=== PATIENT | female | born 1955 | race Caucasian/White ===

== ENCOUNTER 2023-09-29 09:40 | Outpatient (CLI) | payer BC, SELFPAY ==
--- OUTSIDE RECORDS SUMMARY | 2023-09-29 09:42 | XMS_ITS | Clinical Summary ---
Author Name Unknown Organization [facility] [employer] [facility] Address [place], [place] [address] Care Team Providers Care Machine Spreader Name Role Phone Baudilio Cifuentes MD Primary Care Provider [phone] Allergies No known active allergies Medications Medication Sig Dispensed Refills Start Date End Date Status polyethylene glycol-electrolyte (GOLYTELY) 236-22.74-6.74 -5.86 gram suspensionIndication s:Encounter for screening colonoscopy Drink 2 liters (half the bottle) the day before colonoscopy and 2 liters (remaining prep) 6 hours prior to colonoscopy appointment. 4000 mL 07/15/2023 Active Active Problems Problem Noted Date Diagnosed Date Colon polyp 10/17/2010 Overview: Colonoscopy 09/2010 polyp repeat in 5 years Colonoscopy 06/2014 polyp repeat in 5 years Colonoscopy 11/2019 three polyps, repeat in 5 years Encounters Date Type Department Care Team Description 09/23/2023 Orders Only [facility] [address] [place] [address] Tyrone Jimenez MD <No scans attached> 07/14/2023 Telephone [facility] [address] [place] [address] Tyrone Jimenez MD Questions from Last 3 Months Social History Tobacco Use Types Packs/Day Years Used Date Smoking Tobacco: Former Smokeless Tobacco: Never Comments:quit over 30 years ago Alcohol Use Standard Drinks/Week Comments Not Asked 0 (1 standard drink = 0.6 oz pur e alcohol) Sex and Gender Information Value Date Recorded Sex Assigned at Not on file Gender Identity Not on file Sexual Orientation Not on file Obstetrics History Last Filed Vital Signs Vital Sign Reading Time Taken Comments Blood Pressure 108/62 11/02/2019 8:52 AM CDT Pulse 71 11/02/2019 8:52 AM CDT Temperature 36.7 ??C (98 ??F) 11/02/2019 8:52 AM CDT Respiratory Rate - - Oxygen Saturation 100% 11/02/2019 8:52 AM CDT Inhaled Oxygen Concentration - - Weight - - Height - - Body Mass Index - - Plan of Treatment Upcoming Encounters Date Type Department Care Team (Late st Contact Info) Description 09/29/2023 9:45 AM CDT Office Visit [facility] at [facility] [address] [place] [phone] Tyrone Jimenez MD [address] [place] [address] Arrived Health Maintenance Due Date Last Done Comments Tdap 1964 Depression screening for age 12+ 1965 BMI (ht and wt on same day) for age 18+ 1971 Hepatitis C screening for ag e 18-79 1971 Tetanus booster 1973 Lipids for age 45-75 1998 Mammogram for age 45-75 1998 Zoster (shingles) series for age 50+ (1 of 2) 2003 DEXA/DXA scan for age 65+ 2018 Pneumococcal series for age 65+ (1 of 1 - PCV) 2018 COVID-19 vaccine series (3 - season) 2023 08/17/2020, 07/27/2020 Influenza for age 65+ 02/01/2024 Colonoscopy through age 75 09/28/202809/28, 11/02/2019, 11/02/2019, Additional history exists Procedures Procedure Name Priority Date/Time Associated Diagnosis Comments COLONOSCOPY SCREENING Routine 09/29/2023 8:07 AM CDT Polyp of colon, unspecified part of colon, unspecified type from Last 3 Months Results * COLONOSCOPY (11/02/2019 8:17 AM CDT) 11/02/2019 8:17 AM CDT Narrative Transcriptions Tyrone Jimenez MD - 11/02/2019 9:15 AM CDT Patient Name: Irlanda Cole Procedure Date: 11/02/2019 Gender: Female Date of : 1955 Admit Type: Outpatient Procedure: Colonoscopy Proceduralist: Tyrone Jimenez MD , Jane Lewis, RN (Nurse), Marichuy Reeder (Nurse) Indications/Pre-Op Diagnosis: Surveillance: Personal history ofadenomatous polyps on last colonoscopy 5 years ago, Last colonoscopy: June 2014 Medications: Midazolam 4 mg IV, Fentanyl 150 microgramsIV, The level of sedation administered wasmoderate Procedure Description: The patient had risks, benefits and alternatives explained to andgave informed consent. The patient had a stable cardiopulmonary status and judged an adequate candidate for conscious sedation. The [id number]-[id number] was passed through the anus and advanced tothe cecum, identified by appendiceal orifice and ileocecal valve. The ileocecal valve, appendiceal orifice, and rectum were photographed.The colonoscopy was performed without difficulty. The patient toleratedthe procedure well. The quality of the bowel preparation was excellent. Complications: No immediate complications. Estimated Blood Loss & Specimen: Estimated blood loss: none. Specimen collected - Yes and sent to Laboratory Findings: The perianal and digital rectal examinations were normal. A 4 mm polyp was found in the sigmoid colon. The polyp waspedunculated. The polyp was removed with a cold snare. Resection and retrieval were complete. A 2 mm polyp was found in the sigmoid colon. The polyp was sessile.The polyp was removed with a cold biopsy forceps. Resection and retrieval were complete. A 3 mm polyp was found in the ascending colon. The polyp was sessile. The polyp was removed with a cold biopsy forceps. Resection and retrieval were complete. A single small-mouthed diverticulum was found in the sigmoid colon. Sharp angulation of the distal sigmoid. The exam was otherwise without abnormality on direct and retroflexion views. Impressions/Post-Op Diagnosis: - One 4 mm polyp in the sigmoid colon, removed with a cold snare. Resected and retrieved. - One 2 mm polyp in the sigmoid colon, removed with a cold biopsy forceps. Resected and retrieved. - One 3 mm polyp in the ascending colon, removed with a cold biopsy forceps. Resected and retrieved. - Diverticulosis in the sigmoid colon. - The examination was otherwise normal on direct and retroflexionviews. Recommendation: - Patient has a contact number available for emergencies. The signsand symptoms of potential delayed complications were discussed with the patient. Return to normal activities tomorrow. Written discharge instructions were provided to the patient. - Resume previous diet. - Continue present medications. - Await pathology results. - Repeat colonoscopy for surveillance based on pathology results. Moderate Sedation: Moderate (conscious) sedation was administered by the endoscopy nurse and supervised by the endoscopist. The following parameters were monitored: oxygen saturation, heart rate, respiratory rate, blood pressure, adequacy of pulmonary ventilation and reponse to care. [facility] and nursing [facility] for moderate sedation details. Total physician intraservice time was 34 minutes. Tyrone Jimenez MD 11/02/2019 9:15:29 AM This report has been signed electronically. Note Initiated On: 11/02/2019 8:17 AM Procedure Code(s): --- Professional --- 42232, Colonoscopy, flexible; with removalof tumor(s), polyp(s), or other lesion(s) bysnare technique 88105, 59, Colonoscopy, flexible; withbiopsy, single or multiple Diagnosis Code(s): --- Professional --- Z86.010, Personal history of colonicpolyps D12.5, Benign neoplasm of sigmoid colon D12.2, Benign neoplasm of ascending colon K57.30, Diverticulosis of large intestine without perforation or abscess withoutbleeding CPT copyright 2018 [employer]. All rights reserved. The codes documented in this report are preliminary and upon medical records coder reviewmay be revised to meet current compliance requirements. Scope In: 8:34:45 AM Scope Withdrawal Time 0 hours 16 minutes 21 seconds Scope Out: 9:06:39 AM Tyrone Jimenez MD PROCEDURE ORD from Last 3 Months or Most Recently Relevant to Health Maintenance Care Teams Machine Spreader Relationship Specialty Start Date End Date Baudilio Cifuentes MD [address] [place] [phone] PCP - General Family Practice 09/25/10
--- NOTE | 2023-09-29 11:48 | W.ANESCHARGE ---
Anesthesia Charges Start Date/Time Anesthesia Start Date: 09/29/23 Anesthesia Start Time: 11:24 Stop Date/Time Anesthesia Stop Date: 09/29/23 Anesthesia Stop Time: 11:46
--- NOTE | 2023-09-29 12:10 | W.ANESCHARGE ---
Anesthesia Charges Start Date/Time Anesthesia Start Date: 09/29/23 Anesthesia Start Time: 11:24 Stop Date/Time Anesthesia Stop Date: 09/29/23 Anesthesia Stop Time: 11:46 Summary Extremes of Age - Over 70 or under 1: MDA
== END 2023-09-29 09:41 | disposition home or self-care (01) ==
LOC: OP CLINIC 09:41
PROVIDERS: PCP Nurse Practitioner Family; Visit Provider Internal Medicine Gastroenterology
DX: Z86.010 Personal history of colon polyps (principal)
CPT/HCPCS: 00811; 00812; 45378; 99100; J2704

== ENCOUNTER 2024-05-12 13:44 | Outpatient (CLI) | payer BC, MEDICARE, SELFPAY ==
--- NOTE | 2024-05-12 14:00 | CRLHL7_ITS ---
For Patients: As a result of the Century Cures Act, medical imaging exams and procedure reports are released immediately into your electronic medical record. You may view this report before your referring provider. If you have questions, please contact your health care provider. DXA BONE MINERAL DENSITY STUDY Reason for exam: Osteoporosis. Current height (in): 66. Weight (lb): 123. Menopause age: 56. Ethnicity: White. 1. Have you had a previous hip or vertebral fracture? No. 2. Have you had any fractures during your adult life which did not result from significant trauma (e.g., auto accident)? No. 3. Did either of your parents have a hip fracture? Yes. 4. Do you smoke? No. 5. Have you ever taken Glucocorticoids? No. 6. Do you have rheumatoid arthritis? No. 7. Do you have secondary osteoporosis? No. 8. Do you drink 3 or more alcoholic drinks per day? No. 9. Are you being treated for osteoporosis? No. 10. Have you ever taken any of the following medications: Actonel, Evista, Fosamax, Miacalcin, Reclast, Boniva, Forteo, HRT (i.e., estrogen/hormone therapy), Protelos, Prolia, Vitamin D, Calcium, other ??? please specify. ANSWER: Yes, vitamin D and calcium. 11. Do you have any of the following medical conditions: Anorexia or bulimia, asthma or emphysema, end stage renal disease, hyperparathyroidism, any seizure disorders, cancer, inflammatory bowel diseases, hysterectomy, other ??? please specify. ANSWER: No. 12. What was your maximum height (inches)? 67. 13. Do you perform weight bearing exercise regularly? No. 14. Do you regularly consume dairy products? No. 15. Do you drink caffeinated beverages? Yes. 16. At what age did your period start? 10. 17. Are you premenopausal? No. 18. How many full-term pregnancies have you had? 3. 19. Have you ever missed your period for more than 6 months in a row (not including or menopause)? No. TECHNIQUE: Bone mineral density study was performed using the [employer]. FINDINGS: The results of the study expressed as bone mineral density (BMD) are as follows: Lumbar spine L1 to L2: BMD: 0.787 g/cm2. T-score: -1.7. Z-score: 0.3 Neck Left: BMD: 0.513 g/cm2. T-score: -3.0. Z-score: -1.2 Right: BMD: 0.548 g/cm2. T-score: -2.7. Z-score: -0.9 Total Left: BMD: 0.656 g/cm2. T-score: -2.3. Z-score: -0.8 Right: BMD: 0.721 g/cm2. T-score: -1.8. Z-score: -0.3 IMPRESSION: Osteoporosis. *Comparison exams done prior to 11/2019 were performed on different unit, [facility]. COMPARISON: Compared with scan of 05/17/2021, the bone mineral density has decreased by 11.3 percent at the spine and decreased by 6.1 percent at the hip. Compared with scan of 07/30/2013, the bone mineral density has decreased by 12.2 percent at the spine and increased by 1.0 percent at the hip. ALPESH TAVARES M.D. Transcribed: 10:33 a.m. [email or web address] jj/Dictated by: Alpesh Tavares MD @ 05/13/2024 8:29:00 AM (Electronically Signed)
== END 2024-05-12 13:45 | disposition home or self-care (01) ==
LOC: RAD 13:47
PROVIDERS: PCP Nurse Practitioner Family; Visit Provider Nurse Practitioner Family
DX: M81.0 Age-related osteoporosis without current pathological fracture (principal)
CPT/HCPCS: 77080